=== PATIENT | female | born 1940 | race Caucasian/White ===

== ENCOUNTER → 2017-01-27 | Outpatient (CLI) | payer MEDICARE ==
--- NOTE | ~2017-01-27 | CT6 ---
[facility] A Service of [facility] RADIOLOGY TEXT RESULTS PATIENT: EVGENY CAMP LOCATION: [facility] : 40 UNIT #: [id number] AGE: [address]: Mohit Neal MD SEX: F ORDER DR: [id number] [facility] [address] [place], [place] [address] [id number] O MR#: [id number] Acc #: [id number] NAME: EVGENY CAMP : 1940 SEX: F STUDY DATE/TIME: 01/27/2017 15:30 UNIT: [facility] ROOM: STUDY DESCRIPTION: CT Abdomen WWo Cont Attending Physician: Mohit Neal M.D. Referring Physician: Mohit Neal M.D. Ordering Physician: Mohit Neal M.D. Primary Care Physician: Generic Doctor Not In System MEDICAL IMAGING REPORT This report is preliminary unless electronic signature is present EXAM CT of the abdomen with and without contrast. INDICATIONS Follow up renal mass. TECHNIQUE CT of the abdomen was performed before and after the administration of IV contrast using multiphase protocol. Coronal and sagittal reformatted images were obtained. This CT exam was performed with one or more of the following radiation dose reduction techniques: automatic exposure control, adjustment of mA and/or kV according to patient size, and iterative reconstruction. COMPARISON Comparison with MRI of the lumbar spine from 08/20/2015. FINDINGS There is scarring in the right lung base with a calcified granuloma. The liver, gallbladder and spleen are unremarkable. There are tiny cyst in the kidneys bilaterally. There is no evidence for a solid mass. There is no hydronephrosis. There is no renal stone. The adrenal glands are unremarkable. The pancreas is unremarkable. The bone windows show postoperative changes of the spine. IMPRESSION There are tiny cysts in both kidneys. No evidence for a mass. Dictated by... Michael Marcelino M.D. [facility] A Service of [facility] RADIOLOGY TEXT RESULTS PATIENT: EVGENY CAMP LOCATION: [facility] : 40 UNIT #: [id number] AGE: [address]: Mohit Neal MD SEX: F ORDER DR: THIS IS AN ELECTRONICALLY VERIFIED REPORT Michael Marcelino M.D. at 01/29/2017 4:00 PM Malorie TD: 01/28/2017 17:14 JOB #: [id number] MEDICAL IMAGING REPORT Page 1 of 1 COPY
[2017-01-27 16:06] LABS: POC - CREATININE 1.01 mg/dL (0.44-1.03)
== END | disposition home or self-care (01) ==
LOC: CCAT 13:59
PROVIDERS: Urology
DX: N28.89 Other specified disorders of kidney and ureter (principal)
CPT/HCPCS: 74170; 82565; Q9967